=== PATIENT | male | born 1950 | race African-American/Black ===

== ENCOUNTER 2023-10-28 14:21 | Inpatient (IN) | payer OTHER ==
[2023-10-28] MEDS ORDERED: ALBUTEROL SO4 2.5/IPRATROPIUM 0.5 INH SOL 3 ML VIAL.NEB. NEB ONE (16:11)
[2023-10-28 16:43] LABS: BASO % 0.9 % (0-2.0); EOS % 1.5 % (0-4.5); HEMATOCRIT 39.3 % (35.4-49); HEMOGLOBIN 12.4 GM/dL (11.7-16.9); LYMPH % 7.1 % (8-40); MCH 26.7 pg (25.7-33.7); MCHC 31.6 g/dl (32.0-35.9); MEAN CELL VOLUME 84.3 fl (80-96); MEAN PLT VOLUME 9.7 fl (7.5-11.1); MONO % 6.7 % (3.8-10.2); NEUT % 83.8 % (42.8-82.8); PLATELET COUNT 363 10^3/uL (134-434); RBC 4.66 M/mm3 (4.00-5.60); RDW 14.7 % (11.9-15.9); WHITE BLOOD COUNT 25.2 K/mm3 (4.0-10.0)
[2023-10-28 17:04] LABS: POTASSIUM 3.9 mmol/L (3.5-5.1)
[2023-10-28 17:06] LABS: ALBUMIN 3.2 g/dl (3.4-5.0); BLOOD UREA NITROGEN 29.7 mg/dL (7-18); CALCIUM 9.9 mg/dL (8.5-10.1)
[2023-10-28 17:07] LABS: ANISOCYTOSIS 1+; MACROCYTOSIS 0; TARGET CELLS 1+; TEAR DROP CELLS 1+
[2023-10-28 17:09] LABS: CREATININE 1.6 mg/dL (0.55-1.3)
[2023-10-28] MEDS: ALBUTEROL SO4 2.5/IPRATROPIUM 0.5 INH SOL 3 ML VIAL.NEB. NEB SCH (17:10)
[2023-10-28 17:11] LABS: BILIRUBIN,TOTAL 0.7 mg/dL (0.2-1); TOT PROT 9.4 g/dl (6.4-8.2)
[2023-10-28] MEDS ORDERED: AZITHROMYCIN IVPB 500 MG/250 ML BAG IVPB ONE (17:59)
[2023-10-28] MEDS ORDERED: CEFTRIAXONE 1 GM/50 ML BAG ONE (17:59)
[2023-10-28] MEDS: AZITHROMYCIN IVPB 500 MG in DEXTROSE 5%-WATER - 250 ML IVPB ONE (18:17)
[2023-10-28] MEDS: LACTATED RINGERS SOLUTION 1000 ML INFUS.BAG IV ONE (18:17)
[2023-10-28 18:28] LABS: EPI CELLS >36 /uL (0-25.1); HYALINE CASTS 5 /uL (0-3.1); PH,URINE 5.5 (5.0-8.0); URINE APPEARANCE CLOUDY; URINE BACTERIA 15 /uL (0-1359); URINE BILIRUBIN NEGATIVE (NEGATIVE); URINE COLOR YELLOW; URINE GLUCOSE (UA) NEGATIVE (NEGATIVE); URINE KETONE TRACE (NEGATIVE); URINE LEUK ESTERASE 2+ (NEGATIVE); URINE NITRITE NEGATIVE (NEGATIVE); URINE PROTEIN 2+ (NEGATIVE); URINE RBC 12 /uL (0-23.9); URINE UROBILINOGEN 0.2 mg/dL (0.2-1.0); URINE WBC 472 /uL (0-25.8)
[2023-10-28 20:06] VITALS: BMI 17.2
[2023-10-29] MEDS: SODIUM CHLORIDE 1,000 ML IV SCH (00:25)
[2023-10-29 09:28] LABS: HEMATOCRIT 33.4 % (35.4-49); HEMOGLOBIN 10.6 GM/dL (11.7-16.9); MCHC 31.7 g/dl (32.0-35.9); MEAN CELL VOLUME 85.3 fl (80-96); MEAN PLT VOLUME 10.4 fl (7.5-11.1); PLATELET COUNT 298 10^3/uL (134-434); RBC 3.91 M/mm3 (4.00-5.60); RDW 14.8 % (11.9-15.9); WHITE BLOOD COUNT 15.7 K/mm3 (4.0-10.0)
[2023-10-29 09:45] LABS: POTASSIUM 4.1 mmol/L (3.5-5.1)
[2023-10-29 10:16] LABS: CALCIUM 9.3 mg/dL (8.5-10.1)
[2023-10-29 10:17] LABS: BLOOD UREA NITROGEN 29.2 mg/dL (7-18)
[2023-10-29 10:20] LABS: CREATININE 1.4 mg/dL (0.55-1.3)
[2023-10-29] MEDS: APIXABAN 2.5 MG TABLET PO SCH (10:31)
[2023-10-29] MEDS: CEFTRIAXONE 1 GM in DEXTROSE 5%-WATER - 50 ML IVPB SCH (10:31)
[2023-10-29] MEDS: AZITHROMYCIN IVPB 500 MG/250 ML BAG IVPB SCH (10:33)
[2023-10-29 10:36] LABS: ANISOCYTOSIS 0; MACROCYTOSIS 0
[2023-10-29] MEDS: methylPREDNISolone NA SUCC 40 MG/1 ML VIAL IVPUSH SCH (13:33)
[2023-10-29] MEDS: ALBUTEROL SO4 2.5/IPRATROPIUM 0.5 INH SOL 3 ML VIAL.NEB. NEB SCH (15:14)
[2023-10-29] MEDS: BUDESONIDE/FORMETEROL FUMARATE 160/4.5 mcg INHALER IH SCH (16:49)
[2023-10-29] MEDS: ATORVASTATIN CA 40 MG TABLET (FP) PO SCH (21:54)
[2023-10-30 19:42] LABS: EPI CELLS 8 /uL (0-25.1); HYALINE CASTS 0 /uL (0-3.1); URINE APPEARANCE CLEAR; URINE BACTERIA 3 /uL (0-1359); URINE BILIRUBIN NEGATIVE (NEGATIVE); URINE COLOR YELLOW; URINE GLUCOSE (UA) NEGATIVE (NEGATIVE); URINE KETONE NEGATIVE (NEGATIVE); URINE LEUK ESTERASE NEGATIVE (NEGATIVE); URINE NITRITE NEGATIVE (NEGATIVE); URINE PROTEIN 1+ (NEGATIVE); URINE RBC 5 /uL (0-23.9); URINE UROBILINOGEN 0.2 mg/dL (0.2-1.0); URINE WBC 24 /uL (0-25.8)
[2023-11-01 08:38] LABS: HEMATOCRIT 34.1 % (35.4-49); HEMOGLOBIN 11.2 GM/dL (11.7-16.9); MCH 27.8 pg (25.7-33.7); MCHC 32.7 g/dl (32.0-35.9); MEAN CELL VOLUME 84.9 fl (80-96); MEAN PLT VOLUME 10.5 fl (7.5-11.1); PLATELET COUNT 324 10^3/uL (134-434); RBC 4.02 M/mm3 (4.00-5.60); RDW 15.1 % (11.9-15.9); WHITE BLOOD COUNT 19.6 K/mm3 (4.0-10.0)
[2023-11-01 08:50] LABS: POTASSIUM 4.4 mmol/L (3.5-5.1)
[2023-11-01 09:18] LABS: CALCIUM 9.7 mg/dL (8.5-10.1)
[2023-11-01 09:19] LABS: ALBUMIN 2.8 g/dl (3.4-5.0)
[2023-11-01 09:22] LABS: CREATININE 1.5 mg/dL (0.55-1.3)
[2023-11-01 09:25] LABS: BILIRUBIN,TOTAL 0.5 mg/dL (0.2-1)
[2023-11-01 09:37] LABS: ANISOCYTOSIS 0; HELMET CELLS 0; HOWELL-JOLLY BODIES 0; MACROCYTOSIS 0; OVALOCYTE 0; ROULEAU 0; SICKELED CELLS 0; TARGET CELLS 0; TEAR DROP CELLS 0; TOXIC GRANULATION 0
[2023-11-01] MEDS: ASPIRIN COATED 81 MG TABLET.EC PO SCH (09:38)
[2023-11-01] MEDS: amLODIPine BESYLATE 5 MG TABLET (FP) PO SCH (09:38)
[2023-11-02 22:02] VITALS: RESP 18
[2023-11-03] MEDS: predniSONE 20 MG TABLET (UD) PO SCH (13:42)
[2023-11-04 08:51] LABS: POTASSIUM 4.3 mmol/L (3.5-5.1)
[2023-11-04 08:56] LABS: BLOOD UREA NITROGEN 41.7 mg/dL (7-18)
[2023-11-04 08:57] LABS: CREATININE 1.2 mg/dL (0.55-1.3)
[2023-11-04 08:58] LABS: ALBUMIN 2.4 g/dl (3.4-5.0)
[2023-11-04 08:59] LABS: BILIRUBIN,TOTAL 0.4 mg/dL (0.2-1); TOT PROT 6.1 g/dl (6.4-8.2)
[2023-11-04 09:00] LABS: HEMOGLOBIN 10.8 GM/dL (11.7-16.9); MCH 26.5 pg (25.7-33.7); MCHC 30.9 g/dl (32.0-35.9); MEAN CELL VOLUME 85.8 fl (80-96); MEAN PLT VOLUME 10.8 fl (7.5-11.1); PLATELET COUNT 297 10^3/uL (134-434); RBC 4.08 M/mm3 (4.00-5.60); RDW 15.1 % (11.9-15.9); WHITE BLOOD COUNT 15.3 K/mm3 (4.0-10.0)
[2023-11-04 14:21] VITALS: BP 152/58; PULSE 63; TEMP 98.4
== END 2023-11-04 20:28 | disposition home or self-care (01) | DRG 192 ==
LOC: JER 14:21 → JERBED 17:24 → J7W 19:51 → OBSVTOIN 10-29 13:35
PROVIDERS: ADMIT Internal Medicine; ATTEND Internal Medicine
DX: J44.1 Chronic obstructive pulmonary disease with (acute) exacerbation (principal); I10 Essential (primary) hypertension; I48.91 Unspecified atrial fibrillation; Z79.01 Long term (current) use of anticoagulants; E78.5 Hyperlipidemia, unspecified; I73.9 Peripheral vascular disease, unspecified; Z95.0 Presence of cardiac pacemaker; J20.9 Acute bronchitis, unspecified; Z87.891 Personal history of nicotine dependence
CPT/HCPCS: 0241U-QW; 36415; 71046-TC-FY; 71250-TC; 76775-TC; 80048; 80053; 81003; 85025; 87040; 87070; 87086; 87186; 87205; 93005; 93010; 94640; 94761; 99285-25; G0378

== ENCOUNTER 2024-03-28 14:33 | Emergency (ER) | payer OTHER, BC ==
[2024-03-28 15:23] VITALS: RESP 17; BMI 19.2
[2024-03-28 15:58] LABS: BASO % 0.6 % (0-2.0); EOS % 4.2 % (0-4.5); HEMATOCRIT 41.1 % (35.4-49); LYMPH % 8.4 % (8-40); MCH 28.2 pg (25.7-33.7); MCHC 31.5 g/dl (32.0-35.9); MEAN CELL VOLUME 89.5 fl (80-96); MEAN PLT VOLUME 11.8 fl (7.5-11.1); MONO % 5.8 % (3.8-10.2); PLATELET COUNT 163 10^3/uL (134-434); RDW 13.2 % (11.9-15.9); WHITE BLOOD COUNT 15.7 K/mm3 (4.0-10.0)
[2024-03-28 16:16] LABS: POTASSIUM 3.7 mmol/L (3.5-5.1)
[2024-03-28 16:17] LABS: CALCIUM 9.3 mg/dL (8.5-10.1)
[2024-03-28 16:18] LABS: BLOOD UREA NITROGEN 43.8 mg/dL (7-18)
[2024-03-28 16:22] LABS: INR 1.06 (0.83-1.09); PROTHROMBIN TIME (PATIENT) 12.2 SEC (9.7-13.0)
[2024-03-28 16:24] LABS: BILIRUBIN,TOTAL 0.7 mg/dL (0.2-1); TOT PROT 8.2 g/dl (6.4-8.2)
[2024-03-28 16:25] LABS: ACTIVATED PTT 33.9 SECONDS (25.2-36.5)
[2024-03-28] MEDS ORDERED: ACETAMINOPHEN INJECTION 100 ML ONE (16:28)
[2024-03-28] MEDS: ACETAMINOPHEN 1000 MG/100 ML BAG IVPB ONE (16:33)
[2024-03-28] MEDS ORDERED: DIPHTH,PERTUSS(ACELL),TET 0.5 ML DISP.SYRIN IM ONE ×2 (18:43→18:44)
[2024-03-28] MEDS: DIPHTH,PERTUSS(ACELL),TET 0.5 ML DISP.SYRIN IM ONE (18:44)
[2024-03-28] MEDS: morphine SULFATE 4 MG/ML VIAL IVPUSH ONE (20:33)
[2024-03-28 21:27] VITALS: BP 164/60; PULSE 60; TEMP 98.6
== END 2024-03-28 21:29 | disposition short-term general hospital (02) ==
LOC: JER 14:33
PROC: 3E033NZ Introduction of Analgesics, Hypnotics, Sedatives into Peripheral Vein, Percutaneous Approach (ICD-10-PCS; principal; 2024-03-28)
PROC: 3E033NZ Introduction of Analgesics, Hypnotics, Sedatives into Peripheral Vein, Percutaneous Approach (ICD-10-PCS; 2024-03-28)
PROC: 3E0234Z Introduction of Serum, Toxoid and Vaccine into Muscle, Percutaneous Approach (ICD-10-PCS; 2024-03-28)
DX: S02.401A Maxillary fracture, unspecified side, initial encounter for closed fracture (principal); S01.512A Laceration without foreign body of oral cavity, initial encounter; W01.0XXA Fall on same level from slipping, tripping and stumbling without subsequent striking against object, initial encounter; Y93.01 Activity, walking, marching and hiking; Z20.822 Contact with and (suspected) exposure to COVID-19; Z23 Encounter for immunization
CPT/HCPCS: 0241U-QW; 36415; 70450-TC; 70486-TC; 71046-TC-FY; 72125-TC; 80053; 85025; 85610; 85730; 90471; 90715; 96374; 96375; 99285-25; J0131